=== PATIENT | female | born 2000 | race Caucasian/White ===

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

== ENCOUNTER 2020-05-09 19:33 | Emergency (ER) | payer BC ==
--- NOTE | 2020-05-09 20:12 | EDM.PDOC ---
ED HPI GENERAL MEDICAL PROBLEM - General Chief Complaint: Upper Extremity Injury/Pain Stated Complaint: WRIST Time Seen by Provider: 05/09/20 19:45 Source of Information: Reports: Patient History Limitations: Reports: No Limitations - History of Present Illness INITIAL COMMENTS - FREE TEXT/NARRATIVE: Patient presented to the ED because of left wrist pain. She went snowboarding and apparentlt twisted her wrist. She is able to extend and flex her wrist but with pain. She also want to be tested for covid because her dad tested positive although she is asymptomatic at this time. Left Wrist Pain Score (Numeric/FACES): 4 - Related Data Allergies Allergy/AdvReac Type Severity Reaction Status Date / Time No Known Allergies Allergy Verified 08/03/17 10:02 Home Meds: Home Meds Loratadine/Pseudoephedrine [Claritin-D 12 Hour] 1 tab PO Q12HR 08/03/17 [History] Multivitamin [Daily Multiple Vitamin] 1 tab PO DAILY 08/03/17 [History] valACYclovir [Valtrex] 1,000 mg PO BID 08/03/17 [History] Ibuprofen 800 mg PO Q8H #30 tablet 05/09/20 [Rx] traMADol [Ultram] 100 mg PO Q8H PRN #20 tab 05/09/20 [Rx] Past Medical History - Past Health History Medical/Surgical History: Denies Medical/Surgical History - Infectious Disease History Infectious Disease History: Reports: Herpes Social & Family History - Tobacco Use Tobacco Use Status *Q: Never Tobacco User - Caffeine Use Caffeine Use: Reports: Coffee, Soda - Recreational Drug Use Recreational Drug Use: No Review of Systems - Review of Systems Review Of Systems: See Below Constitutional: Reports: No Symptoms Ears: Reports: No Symptoms Nose: Reports: No Symptoms Mouth/Throat: Reports: No Symptoms Respiratory: Reports: No Symptoms Cardiovascular: Reports: No Symptoms GI/Abdominal: Reports: No Symptoms Genitourinary: Reports: No Symptoms Musculoskeletal: Reports: Other (left wrist pain) ED EXAM, GENERAL - Physical Exam Exam: See Below Exam Limited By: No Limitations General Appearance: Alert, No Apparent Distress Ears: Normal External Exam, Normal Canal Nose: Normal Inspection, Normal Mucosa Throat/Mouth: Normal Inspection, Normal Lips, Normal Teeth Head: Atraumatic Neck: Normal Inspection, Supple, Non-Tender, Full Range of Motion Respiratory/Chest: No Respiratory Distress, Lungs Clear, Normal Breath Sounds Cardiovascular: Normal Peripheral Pulses, Regular Rate, Rhythm, No Edema, No Gallop, No JVD, No Murmur GI/Abdominal: Normal Bowel Sounds, Soft, Non-Tender, No Organomegaly Back Exam: Normal Inspection, Full Range of Motion Extremities: Normal Inspection, Other (tenderness and swelling medial and l ateral aspect of the left wrist) Course - Vital Signs Text/Narrative:: Xray Left wrist-see result Left wrist splint-prefabricated applied by CASTILLO Best Ibuprofen 800 mg, Tramadol 100 mg, tylenol 1000 mg PO x1 Covid test-pending Last Recorded V/S: Last Vital Signs Temp 36.8 C 05/09/20 19:41 Pulse 106 H 05/09/20 19:41 Resp 18 05/09/20 19:41 BP 145/97 H 05/09/20 19:41 Pulse Ox 99 05/09/20 19:41 - Orders/Labs/Meds Orders: Active Orders 24 hr Category Date Time Status Wrist Comp Min 3V Lt [CR] Stat Exams 05/09/20 19:41 Taken CORONAVIRUS (COVID19) [facility] Routine Lab 05/09/20 20:45 Ordered Meds: Medications Discontinued Medications Generic Name Dose Route Start Last Admin Trade Name Freq PRN Reason Stop Dose Admin Acetaminophen 1,000 mg 05/09/20 20:33 05/09/20 20:40 Tylenol Extra Strength PO 05/09/20 20:34 1,000 mg ONETIME ONE Administration Ibuprofen 800 mg 05/09/20 20:33 05/09/20 20:40 Motrin PO 05/09/20 20:34 800 mg ONETIME ONE Administration Tramadol HCl 100 mg 05/09/20 20:33 05/09/20 20:40 Ultram PO 05/09/20 20:34 100 mg ONETIME ONE Administration Departure - Departure Time of Disposition: 20:30 Disposition: Home, Self-Care 01 Condition: Good Clinical Impression: Left wrist sprain, Wrist fracture, left - Discharge Information Prescriptions: Ibuprofen 800 mg PO Q8H #30 tablet traMADol [Ultram] 100 mg PO Q8H PRN #20 tab PRN Reason: Pain Instructions: Wrist Sprain, Adult, Wrist Fracture Treated With Immobilization Referrals: PCP,None [Primary Care Provider] - Forms: ED Department Discharge Additional Instructions: Please read discharge instructions on wrist sprain Apply ice Use your splint until your pain is gone Take the following medications all at the same time for better pain relief: Tramadol 100, Ibuprofen 800 mg with tylenol 1000 mg every 8 hours as needed for pain We will call you with the final xray reading this coming week Follow up with ortho this coming week Sepsis Event Note (ED) - Evaluation Sepsis Screening Result: No Definite Risk - Focused Exam Vital Signs: Vital Signs Temp Pulse Resp BP Pulse Ox 05/09/20 19:41 36.8 C 106 H 18 145/97 H 99 - My Orders Last 24 Hours: My Active Orders 05/09/20 19:41 Wrist Comp Min 3V Lt [CR] Stat 05/09/20 20:45 CORONAVIRUS (COVID19) [facility] Routine - Assessment/Plan Last 24 Hours: My Active Orders 05/09/20 19:41 Wrist Comp Min 3V Lt [CR] Stat 05/09/20 20:45 CORONAVIRUS (COVID19) [facility] Routine
[2020-05-09] MEDS ORDERED: traMADol 50 MG Tab PO ONE (20:33)
[2020-05-09] MEDS ORDERED: Acetaminophen 500 MG Tab PO ONE (20:33)
[2020-05-09] MEDS ORDERED: Ibuprofen 800 MG Tab PO ONE (20:33)
--- NOTE | 2020-05-11 13:05 | CR ---
INDICATION: Left wrist injury - fall. LEFT WRIST: Three views of the left wrist were obtained 05/09/20 - no comparison. An acute fracture, dislocation, or other definite bone or joint abnormality, was not identified. If symptoms persist - if occult fracture site is suspected clinically, reexamination is recommended in 10-14 days. MTDD
[2020-05-12 19:05] LABS: CORNONAVIRUS (COVID19) CSH-NRL Negative (Negative)
== END 2020-05-09 20:53 | disposition home or self-care (01) ==
LOC: FB.ED 19:33
DX: S62.102A Fracture of unspecified carpal bone, left wrist, initial encounter for closed fracture (principal); Z20.828 Contact with and (suspected) exposure to other viral communicable diseases; X50.1XXA Overexertion from prolonged static or awkward postures, initial encounter
CPT/HCPCS: 73110; 87635; 99283; A9270; U0003